=== PATIENT | male | born 1975 | race Caucasian/White ===

== ENCOUNTER 2020-12-02 17:47 | Emergency (ER) | payer OTHER ==
[2020-12-02 17:56] VITALS: BP 112/77; PULSE 69; TEMP 98.5; BMI 27.3
[2020-12-02] MEDS ORDERED: DIPHTH,PERTUSS(ACELL),TET 0.5 ML DISP.SYRIN IM ONE ×2 (18:02→18:05)
== END 2020-12-02 18:39 | disposition home or self-care (01) ==
LOC: FER 17:47
PROC: 3E0234Z Introduction of Serum, Toxoid and Vaccine into Muscle, Percutaneous Approach (ICD-10-PCS; principal; 2020-12-02)
DX: S01.319A Laceration without foreign body of unspecified ear, initial encounter (principal)
CPT/HCPCS: 90715; 99283-25